=== PATIENT | female | born 2000 | race Two or more races ===

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

== ENCOUNTER 2019-04-03 20:34 | Emergency (ER) | payer MEDICAID ==
[~2019-04-03] VITALS: Ht 157.5 cm; Wt 100.3 kg
[2019-04-03 20:50] VITALS: Ht 157.5 cm; Wt 100.3 kg
[2019-04-04 00:08] VITALS: BP 101/44
== END 2019-04-04 00:08 | disposition home or self-care (01) ==
LOC: ED 20:34
DX: O99.513 Diseases of the respiratory system complicating pregnancy, third trimester (principal); J11.1 Influenza due to unidentified influenza virus with other respiratory manifestations; Z3A.28 28 weeks gestation of pregnancy
CPT/HCPCS: 87804; J7030